=== PATIENT | male | born 1995 | race Two or more races ===

== ENCOUNTER 2022-03-10 16:28 | Inpatient (IN) | payer OTHER ==
[~2022-03-10] VITALS: Ht 167.6 cm; Wt 59.0 kg
--- NOTE | 2022-03-10 17:29 | NUR ---
SE RECIBE PACIENTE ALERTA, ORIENTADO X 3 ESFERAS REFIERE VENIR POR MALESTAR GENERAL, FIEBRE, DOLOR DE MELIDA, MUSCULAR , LAS COCHONTUR[place], DESDE EL MARLENI HACE 7 WILLIS. SE ESTIMAN S/V SE UBICA EN MARTIN DE ESPERA.
--- NOTE | 2022-03-10 18:31 | NUR ---
PTE EVALUADO POR DR. PRATT. MRS. Krupa CASTANON ORIENTA PTE SOBRE TX A SEGUIR, EL CUAL REFIERE ENTENDER. LA MISMA COLECTA MUESTRAS UTILIZANDO MEDIDAS ASEPTICAS.
--- NOTE | 2022-03-11 | NUR ---
SE RECIBE PTE ALERTA Y ORIENTADO X3 EN [place] CON BARANDAS ELEVADAS. PTE CANALIZADO AREA YEHUDA DE EDEMA Y DE ENROJECIMIENTO. PTE EN ESPERA DE EVALUACION CON MEDICINA INTERNA.
--- NOTE | 2022-03-11 07:52 | NUR ---
SE RECIBE PTE MASCULINO ALERTA Y ORIENTADO EN LAS DWIGHT ESFERAS EN COMPANIA DE FAMILIAR DEL TURNO ANTERIOR; CON BUEN PATRON RESPIRATORIO Y YEHUDA DE DOLOR. VENOPUNCION PATENTE, YEHUDA DE EDEMA Y ERITEMA RECIBIENDO TERAPIA DE IVFS D5W+0.9NSS BAJANDO A 150ML/HR. PTE EN K[place]ETTA NIVEL MAS BAJO CON BARANDAS ELEVADAS Y FRENOS COLOCADOS POR SEGURIDAD. PENDIENTE CONSULTA CON MEDICINA INTERNA YA NOTIFICADA.
--- NOTE | 2022-03-11 08:03 | NUR ---
SE LE ADMINISTRA MEDICAMENTOS MESSI ORDEN MEDICA BAJO MEDIDAS ASEPTICAS.
[2022-03-11] MEDS ORDERED: REMICADE IV (10:17)
[2022-03-16] MEDS ORDERED: B Complex CAPSULE PO (11:03)
[2022-03-16] MEDS ORDERED: INTESTINEX680 M1 PO (11:03)
[2022-03-16] MEDS ORDERED: ZITHROMAX200 MG PO (11:03)
[2022-03-16] MEDS ORDERED: Neurin-Sl Tablet Sl SL (11:03)
[2022-03-16] MEDS ORDERED: PEPCID AC20 MG PO (11:03)
== END 2022-03-16 14:01 | disposition home or self-care (01) | DRG 194 ==
LOC: ER 16:28 → SURH 03-11 10:12 → MEDI 03-11 10:12 → SEC-K 03-11 14:12 → SURG 03-11 14:27 → SURH 03-13 10:09
PROVIDERS: ADMIT Internal Medicine; ATTEND Internal Medicine
PROC: BW21YZZ Computerized Tomography (CT Scan) of Abdomen and Pelvis using Other Contrast (ICD-10-PCS; principal; 2022-03-11)
PROC: 3E0F7GC Introduction of Other Therapeutic Substance into Respiratory Tract, Via Natural or Artificial Opening (ICD-10-PCS; 2022-03-11)
DX: J15.7 Pneumonia due to Mycoplasma pneumoniae (principal); K50.919 Crohn's disease, unspecified, with unspecified complications; D69.3 Immune thrombocytopenic purpura; J90 Pleural effusion, not elsewhere classified; D51.8 Other vitamin B12 deficiency anemias; E86.0 Dehydration; Z20.822 Contact with and (suspected) exposure to COVID-19